=== PATIENT | male | born 1975 | race Caucasian/White ===

== ENCOUNTER 2017-11-15 15:45 | Observation (INO) | payer OTHER ==
[~2017-11-15] VITALS: Ht 175.3 cm; Wt 101.7 kg
[~2017-11-15 15:45] MED LIST: PERCOCET 5-3251 EACH PO
--- NOTE | 2017-11-15 16:09 | ED CARDIAC/CP/PALPITATIONS ---
History of Present Illness General Chief Complaint: Chest Pain Stated Complaint: CP, TIGHTNESS/PRESSURE Source: patient, family Exam Limitations: no limitations Vital Signs & Intake/Output Vital Signs & Intake/Output Vital Signs Date Time Temp Pulse Resp B/P B/P Pulse O2 O2 Flow FiO2 Mean Ox Delivery Rate 11/15 2234 98.8 64 24 132/70 95 11/15 2114 98.1 68 18 125/71 95 Room Air 11/15 2044 90 11/15 1939 97.8 118 17 157/88 98 Room Air 11/15 1825 98.1 58 18 117/70 98 Room Air 11/15 1701 49 11/15 1549 96.8 63 18 156/89 96 Room Air ED Intake and Output 11/16 0000 11/15 1200 Intake Total Output Total Balance Patient 224 lb Weight Weight Reported by Patient Measurement Method Allergies Coded Allergies: pollen extracts (Mild, CONGESTION, HIVES 05/13/16) Reconcile Medications Budesonide (Rhinocort Allergy) 32 MCG/ACTUATION SPRAY.PUMP 1 SPRAY NASB DAILY ALLERGIES (Reported) Cetirizine HCl (Zyrtec) 10 MG TABLET 1 TAB PO DAILY PRN ALLERGIES (Reported) Montelukast Sodium 10 MG TABLET 1 TAB PO DAILY ALLERGIES (Reported) Multiple Vitamin (Multivitamins) 1 EACH TABLET 1 TAB PO DAILY SUPPLEMENT ( Reported) Alcove-3 Fatty Acids (Alcove-3) (Unknown Strength) CAPSULE (Unknown Dose) PO DAILY SUPPLEMENT (Reported) Triage Note: PT FROM HOME C/O "CHEST TIGHTNESS/PRESSURE" SINCE LAST FRIDAY. PT STATES LAST FRIDAY CHEST PRESSURE WAS INTERMITTENT AND THEN CONSTANT SINCE THIS AM. PT DENIES N/V/D, ARM NUMBNESS/TINGLING, JAW OR BACK PAIN. PTS VSS. PT SENT IN FROM WALK IN CLINIC IN [place]. PER MD AT CLINIC PT IS CURRENTLY NOT ON ANY MEDICATION, HX OF SEASONAL ALLERGIES AND GERD. PTS EKG SHOWED BRADYCARDIA, PER MD PT HAS NO THRYOID ISSUES, NO BRUIT, +CLEAR LUNGS. NO DISTRESS NOTED. Triage Nurses Notes Reviewed? yes Onset: Gradual Duration: week(s): Timing: recent history Quality/Severity: moderate, pressure Location: bilateral chest HPI: 41yo male presents to ED sent in by urgent care for chest pain x 1 week. Chest pain is intermittent, currently 5/10, bilateral, pleuritic, worse today. Patient also experiencing pressure to throat area intermittently. Chest pain is associated with dyspnea. Patient reports recent history of ENT infections including otitis media, he sees a specialist periodically. Patient denies abdominal pain, nausea, vomiting, diarrhea, fevers, chills, presyncope, hemoptysis. Patient recently traveled last month of [place] by car. (Mignon Hrenandez) Past History Travel History Traveled to [facility] past 21 day No Medical History Any Pertinent Medical History? 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 No (Mignon Hernandez) Review of Systems Review of Systems Constitutional: Reports: no symptoms. EENTM: Reports: see HPI. Respiratory: Reports: see HPI. Cardiovascular: Reports: see HPI. GI: Reports: no symptoms. Genitourinary: Reports: no symptoms. Musculoskeletal: Reports: no symptoms. Skin: Reports: no symptoms. Neurological/Psychological: Reports: no symptoms. Hematologic/Endocrine: Reports: no symptoms. Immunologic/Allergic: Reports: no symptoms. All Other Systems: Reviewed and Negative (Mignon Hernandez) Physical Exam Physical Exam General Appearance: well developed/nourished, no apparent distress, alert, awake Head: atraumatic, normal appearance Eyes: Bilateral: normal appearance. Ears, Nose, Throat: hearing grossly normal Neck: normal inspection, supple, full range of motion Respiratory: normal breath sounds, chest non-tender, no respiratory distress, lungs clear Cardiovascular: bradycardia Peripheral Pulses: 2+ radial (R), 2+ radial (L) Gastrointestinal: normal bowel sounds, soft, non-tender, no organomegaly Back: normal inspection, normal range of motion Extremities: normal inspection, normal range of motion, no edema, no calf tenderness Neurologic/Psych: awake, alert, oriented x 3 Skin: intact, normal color, warm/dry Core Measures ACS in differential dx? Yes CVA/TIA Diagnosis No Sepsis Present: No Sepsis Focused Exam Completed? No (Mignon Hernandez) Progress Differential Diagnosis: AMI, atrial fibrillation, costochondritis, musculoskeletal pain, myocarditis, pericarditis, pneumonia, pneumothorax, PSVT, pulmonary embolism, PVCs/PACs, V-fib/V-Tach Plan of Care: Orders Procedure Date/time Status Heart Healthy Diet 11/16 B Active EKG 11/16 0716 Active LIPID PANEL 11/16 0230 Complete TROPONIN LEVEL 11/16 0200 Complete EKG 11/16 0200 Active Lab Add-on Test 11/16 UNK Active Regular Diet 11/15 D Complete Teach/Educate 11/16 2147 Active Pain Treatment and Response 11/16 2147 Active Nutritional Intake, Monitor 11/16 2147 Active Isolation 11/16 2147 Active Patient Care Conference 11/16 2147 Active Activity/Ambulation 11/[address] in observation 11/15 2124 Active Pathway - chart 11/15 2120 Active House Staff 11/15 2120 Active Patient Data 11/15 2120 Active Code Status 11/15 2120 Active Patient Data 11/15 1958 Active ED Holding Orders 11/15 195 Active Vital Signs 11/15 195 Active Code Status 11/15 1958 Complete TROPONIN LEVEL 11/15 1940 Complete EKG 11/15 1940 Active THYROID STIMULATING HORMONE 11/15 192 Complete MAGNESIUM 11/15 1927 Complete FREE T4 11/15 1927 Complete Add-on Test (ER Only) 11/15 1841 Active URINE DRUG SCREEN FOR ER ONLY 11/15 1732 Active LYME TITRE 11/15 1640 Active GLYCOSYLATED HGB 11/15 1640 Active TROPONIN LEVEL 11/15 1620 Active D-DIMER 11/15 1620 Complete COMPREHENSIVE METABOLIC PANEL 11/15 1620 Active CBC WITHOUT DIFFERENTIAL 11/15 1620 Complete Intake & Output 11/15 1606 Active EKG 11/15 1546 Active Lab Add-on Test 11/15 UNK Active VTE Mechanical Prophylaxis 11/15 UNK Active Vital Signs 11/15 UNK Complete Telemetry/Undercover Agent 11/15 UNK Active ECHOCARDIOGRAM 11/15 UNK Active Current Medications Sig/Tatianna Start time Last Medication Dose Stop Time Status Admin Montelukast Sodium 10 MG 2200 11/16 2200 AC (Singulair) Aspirin 81 MG DAILY 11/16 1000 AC (Aspirin) Enoxaparin Sodium 40 MG DAILY 11/16 1000 AC (Lovenox) Multivitamins 1 TAB DAILY 11/16 1000 AC Therapeutic (Theragran-M Vitamins Tabs) Atropine Sulfate 1 MG ONE PRN 11/16 0645 AC (Atropine) Budesonide/ 2 PUF BID 11/150 CAN Formoterol Fumarate (SYMBICORT) Acetaminophen 650 MG Q6P PRN 11/15 2129 AC (Tylenol) Diphenhydramine HCl 25 MG AT BEDTIME PRN 11/15 2129 AC (Benadryl) Laboratory Tests 11/16/17 0230: Troponin I < 0.01, Triglycerides 268 H, Cholesterol 211 H, LDL Cholesterol, Calc 119, HDL Cholesterol 39 L, Cholesterol/HDL Ratio 5 H 11/15/17 1927: Magnesium 2.1, Troponin I < 0.01, TSH 1.890, Free T4 0.93 11/15/17 1640: Anion Gap 12, Estimated GFR > 60, BUN/Creatinine Ratio 20.0, Glucose 86, Hemoglobin A1c Pending, Calcium 10.1, Total Bilirubin 0.5, AST 36, ALT 56, Alkaline Phosphatase 37, Troponin I < 0.01, Total Protein 7.2, Albumin 4.7, Globulin 2.5, Albumin/Globulin Ratio 1.9, D-Dimer High Sensitivty < 200, CBC w Diff NO MAN DIFF REQ, RBC 4.93, MCV 86.1, MCH 29.1, MCHC 33.8, RDW 13.4, MPV 7.5 , Gran % 51.5, Lymphocytes % 40.3, Monocytes % 7.1, Eosinophils % 1.0, Basophils % 0.1, Absolute Granulocytes 2.8, Absolute Lymphocytes 2.2, Absolute Monocytes 0.4, Absolute Eosinophils 0.1, Absolute Basophils 0, Lyme Disease Antibody Pending Heart Score=1 Scores 0-3: 0.9-1.7% risk of adverse cardiac event. In the HEART Score study, these patients were discharged (0.99% in the retrospective study, 1.7% in the prospective study) Patient with episodes of bradycardia detected on monitor, as well as 47-48bpm. heart rate is also fluctuating between 50s and 80s regularly. Patient exercises however is not an avid athelete, is concerned about dipping heart rate. Patient still has active chest pain here in the emergency department. Repeat EKG in sinus tachycardia, rate 109, patient's heart rate down and elevated as high as 120 here in the emergency department. The patient was seen and evaluated by Dr. Cruz. Given multiple episodes of bradycardia with alternating tachycardia and active chest pain patient requires telemetry observation for further evaluation and cardiology consult tomorrow. Spoke with Dr. Malone regarding this patient. Dr. Marcano spoke with hospitalist regarding this patient's telemetry observation. Diagnostic Imaging: Viewed by Me: Radiology Read. Discussed w/RAD: Radiology Read. CXR Impression: PATIENT: RAYSA FELIZ PRESENT AGE: 41 PATIENT ACCOUNT NO: [id number] : 75 LOCATION: [facility] ORDERING PHYSICIAN: Mignon AMADO SERVICE DATE: 11/15/17 EXAM TYPE: RAD - XRY-CHEST XRAY, TWO VIEWS EXAMINATION: XR CHEST CLINICAL INFORMATION: Chest pain and shortness of breath for one week. COMPARISON: None TECHNIQUE: 2 views of the chest were obtained. FINDINGS: The lungs are well-inflated and clear. Trachea is midline in position. No evidence of interstitial disease, focal consolidation, mass, pneumothorax or pleural effusion. The cardiomediastinal silhouette and pulmonary maribell have normal size and contour. The visualized bones are normal. The examined upper abdomen is unremarkable. IMPRESSION: No acute cardiopulmonary disease. DICTATED BY: Korey Basurto MD DATE/TIME DICTATED:11/15/171654 ASSISTANT GUEST SERVICES MANAGER:NICHOLE DATE/TIME TRANSCRIBED:11/15/171654 CONFIDENTIAL, DO NOT COPY WITHOUT APPROPRIATE AUTHORIZATION. <Electronically signed in Other Vendor System> SIGNED BY: Korey Basurto MD 11/15/171658 Initial ED EKG: sinus bradycardia @55bpm, nonspecific ST changes Repeat EKG: changed (HR 109, SINUS TACHYCARDIA) (Xena AMADO,Mignon Parra) Departure Departure Disposition: STILL A PATIENT Condition: Stable Clinical Impression Primary Impression: Bradycardia Secondary Impressions: Chest pain Qualifiers: Chest pain type: unspecified Qualified Code: R07.9 - Chest pain, unspecified Referrals: Mary BRUNSON,Kel Dixon (PCP/Family) Departure Forms: Customer Survey General Discharge Information Observation Note Spoke With: Eh [facility]UNSON,[facility] Physician Advisor Notified: LISA CRUZ DO Place Patient In: Non-ED OBS Care Area Rationale for Observation: My rational for observation is as follows [bradycardia in the upper 40s and low 50s with alternating tachycardia, rate in 120s with recurrent chest pain here in the emergency department requiring repeat EKGs, repeat troponins, telemetry monitoring, cardiology consult tomorrow morning, premature discharge is medically unsafe.]. (Xena AMADO,Mignon Parra) Admission Note Documentation of Exam: Documentation of any treatments & extenuating circumstances including Concerns Regarding Discharge (functional status, medication knowledge or non-compliance, living conditions, etc.) that warrant an admission rather than observation: Observation Note Rationale for Observation: My rational for observation is as follows . PA/[employer] Co-Sign Statement Statement: ED Attending supervision documentation- [X] I saw and evaluated the patient. I have also reviewed all the pertinent lab results and diagnostic results. I agree with the findings and the plan of care as documented in the PA's/[employer]'s documentation. [X] I have reviewed the ED Record and agree with the PA's/[employer]'s documentation. [] Additions or exceptions (if any) to the PAs/DIRECTOR [employer]'s note and plan are summarized below: [] (Jeet BRUNSON,Alexandre Hoyos) Critical Care Note Critical Care Note Critical Care Time: non-applicable (Xena AMADO,Mignon Parra)
[2017-11-15 16:49] LABS: ABSOLUTE BASOPHIL COUNT 0 /CUMM (0.0-0.2); ABSOLUTE EOSINOPHIL COUNT 0.1 /CUMM (0.0-0.7); ABSOLUTE GRANULOCYTE CT 2.8 /CUMM (1.4-6.5); ABSOLUTE LYMPH COUNT 2.2 /CUMM (1.2-3.4); ABSOLUTE MONOCYTE COUNT 0.4 /CUMM (0.10-0.60); BASOPHIL % 0.1 % (0.0-2.0); GRANULOCYTE % 51.5 % (42.2-75.2); HEMATOCRIT 42.5 % (42-52); MEAN CORPUSCULAR HGB 29.1 PG (27.0-31.0); MEAN CORPUSCULAR HGB CONC 33.8 G/DL (33.0-37.0); MEAN CORPUSCULAR VOLUME 86.1 FL (80.0-94.0); MEAN PLATELET VOLUME 7.5 FL (7.4-10.4); PLATELET COUNT 275 /CUMM (130-400); RBC DISTRIBUTION WIDTH 13.4 % (11.5-14.5); RED BLOOD CELL CT 4.93 /CUMM (4.70-6.10); WHITE BLOOD CELL COUNT 5.5 /CUMM (4.8-10.8)
--- NOTE | 2017-11-15 16:59 | RADIOLOGY REPORT ---
EXAMINATION: XR CHEST CLINICAL INFORMATION: Chest pain and shortness of breath for one week. COMPARISON: None TECHNIQUE: 2 views of the chest were obtained. FINDINGS: The lungs are well-inflated and clear. Trachea is midline in position. No evidence of interstitial disease, focal consolidation, mass, pneumothorax or pleural effusion. The cardiomediastinal silhouette and pulmonary maribell have normal size and contour. The visualized bones are normal. The examined upper abdomen is unremarkable. IMPRESSION: No acute cardiopulmonary disease.
[2017-11-15] MEDS ORDERED: MONTELUKAST SOD10 M1 PO (17:15)
[2017-11-15] MEDS ORDERED: RHINOCORT ALL8.43 ML NASB (17:16)
[2017-11-15] MEDS ORDERED: ZYRTEC10 M3 PO (17:16)
[2017-11-15] MEDS ORDERED: OMEGA-31000 M1 PO (17:16)
[2017-11-15] MEDS ORDERED: MULTIVITAMINS1 EAC9 PO (17:17)
--- NOTE | 2017-11-15 20:30 | History & Physical ---
Liliana BRUNSON,Yee 11/15/17 2030: General Information and HPI MD Statement: I have seen and personally examined RAYSA FELIZ and documented this H&P. The patient is a 41 year old M who presented with a patient stated chief complaint of [chest pain]. Source of Information: patient Exam Limitations: no limitations History of Present Illness: Mr. Feliz is a 41-year-old gentleman with past medical history of allergies, Lyme disease and GERD presents with chest pain that has required one for the past 1 week. According to the patient, he first felt the chest pressure along with some throat pressure a week ago which lasted for 20 minutes, without any precipitating, aggravating/relieving factors and not associated with palpitations or shortness of breath. The chest pain resolved on its and he has been experiencing it on and off but today the chest pressure was constant and he decided to go to the walk-in clinic. EKG was done at the walk-in clinic which showed bradycardia and some nonspecific ST-T wave changes and was sent to the [place] ER for further evaluation. He denies any cough, sputum production, shortness of breath, wheezing, fever/chills, lightheadedness/dizziness, or loss of consciousness. The patient doesn't complain of any palpitations this mentioned noticing his heart rate going up to 120s on the Fitbit. He also mentions getting a lot of upper and lower respiratory tract infections, recently was treated for otitis media in October. He also started exercising for weeks ago 3 days per week and has been taking some Peruvian multivitamin along with the protein supplement. Patient states that he was diagnosed with Lyme disease 20 years ago and even now goes outside a lot but does not remember any recent tick bites. Allergies/Medications Allergies: Coded Allergies: pollen extracts (Mild, CONGESTION, HIVES 05/13/16) Home Med list Budesonide (Rhinocort Allergy) 32 MCG/ACTUATION SPRAY.PUMP 1 SPRAY NASB DAILY ALLERGIES (Reported) Cetirizine HCl (Zyrtec) 10 MG TABLET 1 TAB PO DAILY PRN ALLERGIES (Reported) Montelukast Sodium 10 MG TABLET 1 TAB PO DAILY ALLERGIES (Reported) Multiple Vitamin (Multivitamins) 1 EACH TABLET 1 TAB PO DAILY SUPPLEMENT ( Reported) Chauvin-3 Fatty Acids (Chauvin-3) (Unknown Strength) CAPSULE (Unknown Dose) PO DAILY SUPPLEMENT (Reported) Past History Travel History Traveled to [place] past 21 day No Medical History Neurological: NONE EENT: allergies Cardiovascular: NONE Respiratory: NONE Gastrointestinal: ACID REFLUX Hepatic: NONE Renal: NONE Musculoskeletal: NONE Psychiatric: NONE Endocrine: NONE Blood Disorders: NONE Cancer(s): NONE 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 Home Who Do You Live With? spouse Smoking Status: Never Smoked ETOH Use: denies use Illicit Drug Use: marijuana Functional Ability ADLs Independent: dressing, eating, toileting, bathing. Ambulation: independent IADLs Independent: shopping, housework, finances, food prep, telephone, transportation , medication admin. Review of Systems Review of Systems Constitutional: Reports: no symptoms. EENTM: Reports: no symptoms. Cardiovascular: Reports: chest pain. Respiratory: Reports: no symptoms. GI: Reports: no symptoms. Genitourinary: Reports: no symptoms. Musculoskeletal: Reports: no symptoms. Skin: Reports: no symptoms. Neurological/Psychological: Reports: no symptoms. Hematologic/Endocrine: Reports: no symptoms. Immunologic/Allergic: Reports: no symptoms. All Other Systems: Reviewed and Negative Exam & Diagnostic Data Last 24 Hrs of Vital Signs/I&O Vital Signs Date Time Temp Pulse Resp B/P B/P Pulse O2 O2 Flow FiO2 Mean Ox Delivery Rate 11/15 2234 98.8 64 24 132/70 95 11/15 2114 98.1 68 18 125/71 95 Room Air 11/15 2044 90 11/15 1939 97.8 118 17 157/88 98 Room Air 11/15 1825 98.1 58 18 117/70 98 Room Air 11/15 1701 49 11/15 1549 96.8 63 18 156/89 96 Room Air Intake & Output 11/16 0800 11/16 0000 11/15 1600 Intake Total Output Total Balance Patient 224 lb 215 lb Weight Weight Reported by Patient Measurement Method Physical Exam General Appearance Alert, Oriented X3, Cooperative, No Acute Distress Skin No Rashes, No Breakdown HEENT Atraumatic, PERRLA, EOMI, Mucous Membr. moist/pink Neck Supple, No JVD Cardiovascular Regular Rate, Normal S1, Normal S2, No Murmurs Lungs Clear to Auscultation, Normal Air Movement Abdomen Normal Bowel Sounds, Soft, No Tenderness Extremities No Clubbing, No Cyanosis, No Edema, Normal Pulses Last 24 Hrs of Labs/Salvador: Laboratory Tests 11/15/17 1927: Magnesium 2.1, Troponin I < 0.01, TSH 1.890, Free T4 0.93 11/15/17 1640: Anion Gap 12, Estimated GFR > 60, BUN/Creatinine Ratio 20.0, Glucose 86, Calcium 10.1, Total Bilirubin 0.5, AST 36, ALT 56, Alkaline Phosphatase 37, Troponin I < 0.01, Total Protein 7.2, Albumin 4.7, Globulin 2.5, Albumin/Globulin Ratio 1.9, D-Dimer High Sensitivty < 200, CBC w Diff NO MAN DIFF REQ, RBC 4.93, MCV 86.1, MCH 29.1, MCHC 33.8, RDW 13.4, MPV 7.5, Gran % 51.5, Lymphocytes % 40.3, Monocytes % 7.1, Eosinophils % 1.0, Basophils % 0.1, Absolute Granulocytes 2.8, Absolute Lymphocytes 2.2, Absolute Monocytes 0.4, Absolute Eosinophils 0.1, Absolute Basophils 0, Lyme Disease Antibody Pending Diagnostic Data EKG Results Normal sinus rhythm Heart rate 55 QTC 442 CXR Results IMPRESSION: No acute cardiopulmonary disease. Assessment/Plan Assessment: Mr. Feliz is a 41-year-old gentleman with past medical history of allergies, Lyme disease and GERD presents with chest pain that has required one for the past 1 week. Problem list 1. Chest pain 2. Tachycardia alternating with bradycardia - heart rate on the cardiac sonographer range from 40-110, patient did mention having episodes of bradycardia every time he dozed off. 3. Non-Specific EKG changes 4. History of GERD and allergies - We'll observe the patient on telemetry floor for 24-48 hours. - Start the patient on aspirin 41 mg daily - Nitroglycerin as needed for chest pain - Telemetry monitoring - Troponin and EKG 3 to rule out ACS - Cardiology consult in a.m. - Echocardiogram - TSH and free T4 levels - We'll recheck potassium, mag and phosphorus levels in a.m. - Lyme titre pending - ?? Holter monitor as an outpatient. - Continue home medications. As Ranked By This Provider Problem List: 1. Chest pain Qualifiers Chest pain type: unspecified Qualified Code: R07.9 - Chest pain, unspecified 2. Bradycardia Core Measures/Misc (05/18) Acute Coronary Syndrome ACS Diagnosis: No Congestive Heart Failure Congestive Heart Failure Diagnosis No Cerebrovascular Accident CVA/TIA Diagnosis: No VTE (View Protocol) VTE Risk Factors Age>40 No Mechanical VTE Prophylaxis d/t N/A MechProphylax Ordered No VTE Pharm Prophylaxis d/t NA PharmProphylax ordered Sepsis (View protocol) Sepsis Present: No Sanket Mcneill 11/15/17 2255: Resident Review Statement Resident Statement: examined this patient, discussed with business development intern, agreed with business development intern, discussed with family, reviewed EMR data (avail), discussed with nursing , discussed with case mgmt, reviewed images, amended to note Other Findings: This is a 41-year-old male with past medical history significant for allergies, GERD, Ear infection, Lyme disease 25 years back presented to the emergency department for evaluation of chest pain ongoing for 1 week. Patient reports that he has been having chest pains for 1 week, reports chest tightness middle of his chest, 5 out of 10, throat pressure, on and off, comes randomly, no aggravating or relieving factors. He didn't try any medications for the chest pain. Denied any nausea, vomiting, diaphoresis, numbness or tingling, radiation of chest pain, short of breath, palpitations or syncope. Patient reports that he has this chest pain for 1 week, went to urgent care clinic this afternoon for further evaluation, EKG was done at the urgent care which showed sinus bradycardia, first-degree AV block, sinus arrhythmia with some T-wave flattening seen in the inferior leads, ST T-wave changes in V5. He was sent in from urgent care for evaluation of chest pain and EKG changes. Patient reports that he started doing exercise for last 1 month, goes 3 days per week, doing some strengthening exercises for 30 minutes. Of note he reports that he takes LURONG which is a muscle supplement from [id number]. He has no prior history of chest pain, no family history of cardiac disease. Review of systems negative for fever, chills, productive cough, short of breath, palpitations, nausea, vomiting, abdominal pain, change in bladder or bowel habits. He denied smoking, alcohol abuse, illicit drug abuse. No pertinent family history. Vitals afebrile, heart rate 63, respiratory rate 18, blood pressure 156/89, saturating at 96 on room air. On exam General Appearance: well developed/nourished, no apparent distress, alert, awake Head: atraumatic, normal appearance Neck: normal inspection, supple, full range of motion Respiratory: normal breath sounds, chest non-tender, no respiratory distress, lungs clear Cardiovascular: bradycardia/TACHYCARDIA Gastrointestinal: normal bowel sounds, soft, non-tender, no organomegaly Extremities: normal inspection, normal range of motion, no edema, no calf tenderness Pertinent labs CBC, BEP within normal limits LFT, troponin negative Chest x-ray no acute cardiopulmonary findings. EKG from urgent care showed sinus rhythm, sinus bradycardia, 55, inferior lead T -wave flattening, ST T changes in V5. EKG in the ER showed sinus RHYTHM, rate 55. Next EKG showed sinus tachycardia, sinus rhythm, 109. ------- 1. Atypical chest pain This is a 41-year-old male with no prior cardiac history, family history presented to the emergency room for evaluation of chest pain ongoing for 1 week. He reports chest tightness, 5 out of 10, nonradiating chest pain on and off for 1 week. No aggravating or relieving factors. Not associated with any other symptoms. He is hemodynamically stable. However his EKG showed some T-wave flattening in the inferior leads and ST changes in V5. * Possible differentials - atypical chest pain versus acute coronary syndrome/ unstable angina. Other possibility musculoskeletal chest pain, GERD. * We'll place her under observation in the telemetry floor * Continuous telemetry monitoring * Monitor vitals every shift * Maintain oxygen saturation above 90 * Serial troponin and EKG * Received aspirin 325 mg in the emergency room * Continue aspirin 81 daily * Nitroglycerin tablet as needed for chest pain * Cardiology consult * Follow-up thyroid function tests 2. Tachycardia-Bradycardia EKG from urgent care showed sinus rhythm, sinus bradycardia, 55, inferior lead T -wave flattening, ST T changes in V5. EKG in the ER showed sinus RHYTHM, sinus harry rate 55. Next EKG showed sinus tachycardia, sinus rhythm, 109. He was found to have heart rate varying between 40-110 on the music promoter. * We'll place her under observation in the telemetry floor * Continuous telemetry monitoring * Follow cardiology recommendations * Follow-up echocardiogram 3. Allergies Continue home medication montelukast and Benadryl 25 mg at bedtime LURONG- DEER ANTRAL VELVET Cayuta antler velvet is a natural source of nutrients of which IGF-1, Glucosamine, Chondroitin and Hyaluronic acid. the supplement boosts energy levels and could seriously affect heart. Patient is full code DVT prophylaxis subcutaneous Lovenox Regular diet Eh BRUNSON, [facility] 11/16/17 0253: Attending MD Review Statement Attending Statement Attending MD Statement: examined this patient, discuss w/resident/PA/DRAPERY CUTTER, agreed w/resident/PA/DRAPERY CUTTER, discussed with family, reviewed images, amended to note Attending Assessment/Plan: 41 yo M with h/o seasonal allergies, Lyme disease, is here for evaluation of substernal chest pressure and pressure sensation in the throat, associated with difficulty taking a deep breath. This is ongoing for the past 1 week, first noticed when he was driving to the [employer] last weekend. Subsequently he has noticed it intermittently at rest or on exertion. It usually lasts about 20 minutes and resolves on its own. No associated symptoms. No aggravating or relieving factors. Today, the chest pressure did not resolve, so he went to an Urgent care from where he was directed to the ER due to an abnormal EKG. No family history of premature heart disease. Patient does not smoke, drink alcohol or do drugs. Patient is currently not in any distress and has no chest pressure. Patient works at [employer] (since past 4 months), also restarted working out at the gym for past 4 weeks. He has been taking a supplement "Cayuta Velvet Lurong Living" for the past 1 week, which is to boost strength, athletic performance and endurance. While in the ER, patient was noted to be bradycardic to high 40's and then tachycardic to 110's asymptomatic. Patient's reports that he was dozing off when his HR dropped to 40's. Patient also showed his fitness bruno which has recorded his HR with a very variable range from 60's to 120's. Vitals stable with HR now is 60's. Exam unremarkable. Labs are unremarkable, troponin negative. Utox pending. CXR: no acute process. EKG (at Urgent care): sinus harry at 55, 1st degree heart block, isolated TWI in lead III, peaked T-wave V2-4, ?LVH. EKG (ER): sinus tachycardia @ 109, TWI in inferior leads II, III, aVF, Qtc 442. Assessment and plan: 1. Chest pain, rule out ACS 2. EKG with nonspecific T-wave changes 3. Asymptomatic bradycardia interspersed with tachycardia 4. History of Lyme's disease - 23 hour observation on Telemetry - Serial EKG and troponin - Check TSH, free T4, lipid panel, HbA1c - Aspirin 325 mg given in ER - SL nitro as needed - Obtain echo - Cardio consult - Lyme titers pending - Monitor for arrhythmias, atropine at bedside - Discontinue use for Cayuta-Velvet supplement for now unsure if this medication is related to his symptoms. - Follow Urine drug screen results DVT ppx Lovenox. Full code. Observation Initial Note - I have personally examined RAYSA FELIZ on 11/16/17 at 0254. The disposition of RAYSA FELIZ is uncertain at this time and before a determination can be made, he requires a period of observation for the following reasons [Chest pressure, bradycardia]
[2017-11-15 22:34] VITALS: BP 132/70
--- NOTE | 2017-11-16 09:32 | Cons- Cardiology ---
General Information and HPI Consulting Request Date of Consult: 11/16/17 Requested By: Eh BRUNSON,Reg Reason for Consult: Chest pain with variable heart rate Source of Information: patient Exam Limitations: no limitations History of Present Illness: The patient is a 41-year-old male with a past medical history of allergies, Lyme disease, and reflux disease. The patient presented to the emergency room with somewhat atypical symptoms of upper sternal chest sensation which he describes as a mild discomfort or pressure which has been present over the last week. The symptoms are not related to exertion. The patient goes to the gym without any difficulties. He has noticed some respiratory component to the symptoms. Otherwise, he has not noted any specific pattern, positional component, etc. In the emergency room, the patient was also noted to have fluctuating heart rate which appeared to be sinus rhythm, ranging from the high 40s to the low 100s. The patient was admitted to the hospital as an observation for further evaluation and monitoring. Since admission, he has been feeling fairly well. On the clinical data specialist, he has had no evidence of any arrhythmias other than sinus arrhythmia. Allergies/Medications Allergies: Coded Allergies: pollen extracts (Mild, CONGESTION, HIVES 05/13/16) Home Med List: Budesonide (Rhinocort Allergy) 32 MCG/ACTUATION SPRAY.PUMP 1 SPRAY NASB DAILY ALLERGIES (Reported) Cetirizine HCl (Zyrtec) 10 MG TABLET 1 TAB PO DAILY PRN ALLERGIES (Reported) Montelukast Sodium 10 MG TABLET 1 TAB PO DAILY ALLERGIES (Reported) Multiple Vitamin (Multivitamins) 1 EACH TABLET 1 TAB PO DAILY SUPPLEMENT ( Reported) Guthrie-3 Fatty Acids (Guthrie-3) (Unknown Strength) CAPSULE (Unknown Dose) PO DAILY SUPPLEMENT (Reported) Current Medications: Current Medications Sig/Tatianna Start time Last Medication Dose Route Stop Time Status Admin Acetaminophen 650 MG Q6P PRN 11/15 2129 AC PO Aspirin 81 MG DAILY 11/16 1000 AC 11/16 PO 0921 Aspirin 0 .STK-MED ONE 11/15 2136 DC PO Aspirin 325 MG ONCE ONE 11/15 2129 DC 11/15 PO 11/15 Atropine Sulfate 1 MG ONE PRN 11/16 0645 AC IV Atropine Sulfate 1 MG ONE ONE 11/16 0345 DC IV 11/16 0346 Budesonide/ 2 PUF BID 11/150 CAN Formoterol Fumarate INH Diphenhydramine HCl 25 MG AT BEDTIME PRN 11/150 AC PO Enoxaparin Sodium 40 MG DAILY 11/16 1000 AC 11/16 SC 0921 Montelukast Sodium 10 MG 0 11/16 2199 AC PO Multivitamins 1 TAB DAILY 11/16 1000 AC 11/16 Therapeutic PO 0921 Past History Travel History Traveled to [place] past 21 day No Medical History Blood Transfusion Hx: No Neurological: NONE EENT: allergies Cardiovascular: NONE Respiratory: NONE Gastrointestinal: ACID REFLUX Hepatic: NONE Renal: NONE Musculoskeletal: NONE Psychiatric: NONE Endocrine: NONE Blood Disorders: NONE Cancer(s): 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 Home Who Do You Live With? spouse Smoking Status: Never Smoked ETOH Use: denies use Illicit Drug Use: marijuana Functional Ability ADLs Independent: dressing, eating, toileting, bathing. Ambulation: independent IADLs Independent: shopping, housework, finances, food prep, telephone, transportation , medication admin. Exam & Diagnostic Data Vital Signs and I&O Vital Signs Date Time Temp Pulse Resp B/P B/P Pulse O2 O2 Flow FiO2 Mean Ox Delivery Rate 11/15 2233 98.8 64 24 132/70 95 11/15 2114 98.1 68 18 125/71 95 Room Air 11/15 2044 90 11/15 1939 97.8 118 17 157/88 98 Room Air 11/15 1825 98.1 58 18 117/70 98 Room Air 11/15 1701 49 11/15 1549 96.8 63 18 156/89 96 Room Air Intake & Output 11/16 1600 11/16 0800 11/16 0000 11/15 1600 11/15 0800 11/15 0000 Intake Total Output Total Balance Patient 224 lb 215 lb Weight Weight Reported by Patient Measurement Method Physical Exam: General Appearance Alert, Oriented X3, Cooperative, No Acute Distress Skin normal HEENT Atraumatic, PERRLA, EOMI, Mucous Membr. moist/pink Neck Supple, No JVD, carotid shows normal bilaterally with no bruits Cardiovascular Regular Rate, Normal S1, Normal S2, No Murmurs Lungs Clear to Auscultation and percussion bilaterally. No chest wall tenderness Abdomen Normal Bowel Sounds, Soft, No Tenderness Extremities No Clubbing, No Cyanosis, No Edema, Normal Pulses Labs/Salvador Results: Laboratory Tests 11/16 11/15 11/15 0230 1927 1640 Chemistry Sodium (137 - 145 mmol/L) 141 Potassium (3.5 - 5.1 mmol/L) 4.1 Chloride (98 - 107 mmol/L) 102 Carbon Dioxide (22 - 30 mmol/L) 28 Anion Gap (5 - 16) 12 BUN (9 - 20 mg/dL) 20 Creatinine (0.7 - 1.2 mg/dL) 1.0 Estimated GFR (>60 ml/min) > 60 BUN/Creatinine Ratio (7 - 25 %) 20.0 Glucose (65 - 99 mg/dL) 86 Hemoglobin A1c (4.2 - 5.8 %) Pending Calcium (8.4 - 10.2 mg/dL) 10.1 Magnesium (1.6 - 2.3 mg/dL) 2.1 Total Bilirubin (0.2 - 1.3 mg/dL) 0.5 AST (17 - 59 U/L) 36 ALT (21 - 72 U/L) 56 Alkaline Phosphatase (< 127 U/L) 37 Troponin I (<0.11 ng/ml) < 0.01 < 0.01 < 0.01 Total Protein (6.3 - 8.2 g/dL) 7.2 Albumin (3.5 - 5.0 g/dL) 4.7 Globulin (1.9 - 4.2 gm/dL) 2.5 Albumin/Globulin Ratio (1.1 - 2.2 %) 1.9 Triglycerides (<150 mg/dL) 268 H Cholesterol (< 200 MG/DL) 211 H LDL Cholesterol, Calc (65 - 129 mg/dL) 119 HDL Cholesterol (40 - 60 mg/dL) 39 L Cholesterol/HDL Ratio (0.00 - 4.88 %) 5 H TSH (0.270 - 4.200 uIU/mL) 1.890 Free T4 (0.64 - 1.79 ng/dL) 0.93 Coagulation D-Dimer High Sensitivty (0 - 243 ng/ml) < 200 Hematology CBC w Diff NO MAN DIFF REQ WBC (4.8 - 10.8 /CUMM) 5.5 RBC (4.70 - 6.10 /CUMM) 4.93 Hgb (14.0 - 18.0 G/DL) 14.4 Hct (42 - 52 %) 42.5 MCV (80.0 - 94.0 FL) 86.1 MCH (27.0 - 31.0 PG) 29.1 MCHC (33.0 - 37.0 G/DL) 33.8 RDW (11.5 - 14.5 %) 13.4 Plt Count (130 - 400 /CUMM) 275 MPV (7.4 - 10.4 FL) 7.5 Gran % (42.2 - 75.2 %) 51.5 Lymphocytes % (20.5 - 51.1 %) 40.3 Monocytes % (1.7 - 9.3 %) 7.1 Eosinophils % (0 - 5 %) 1.0 Basophils % (0.0 - 2.0 %) 0.1 Absolute Granulocytes (1.4 - 6.5 /CUMM) 2.8 Absolute Lymphocytes (1.2 - 3.4 /CUMM) 2.2 Absolute Monocytes (0.10 - 0.60 /CUMM) 0.4 Absolute Eosinophils (0.0 - 0.7 /CUMM) 0.1 Absolute Basophils (0.0 - 0.2 /CUMM) 0 Serology Lyme Disease Antibody Pending Diagnostic Data CXR Results FINDINGS: The lungs are well-inflated and clear. Trachea is midline in position. No evidence of interstitial disease, focal consolidation, mass, pneumothorax or pleural effusion. The cardiomediastinal silhouette and pulmonary maribell have normal size and contour. The visualized bones are normal. The examined upper abdomen is unremarkable. IMPRESSION: No acute cardiopulmonary disease. Assessment/Plan Assessment/Plan Assessment: 1. Atypical chest pain syndrome 2. Fluctuating heart rate with alternating mild bradycardia and mild tachycardia- on the monitor, the patient only has evidence of sinus arrhythmia with fluctuating heart rate. There is no evidence of any other arrhythmia. 3. Borderline ECG 4. History of GERD and allergies Recommendations: -At the moment, the patient's symptoms are somewhat atypical. There is no evidence of any acute cardiac issues. ECGs and troponins have been unrevealing. The clinical data specialist only show sinus arrhythmia. It is possible that the patient may have very mild pericarditis following his recent viral infection/ influenza. The echo cardiac gram shows normal left ventricular function with no evidence of any significant abnormalities. -I discussed the situation in detail with the patient. For now, I believe it is safe to discharge the patient home. -I would discharge the patient home on low-dose nonsteroidal anti-inflammatory such as ibuprofen 200 mg 3 times a day -I will arrange to have an event monitor sent to the patient's house for further monitoring of his heart rate. -I will follow-up the patient in the office in one to 2 weeks. Consult Acknowledgment - Thank you for your consult request.
--- NOTE | 2017-11-16 13:18 | Patient Discharge Instructions ---
Discharge Instructions General Discharge Information You were seen/treated for: 1. Chest pain, rule out ACS 2. EKG with nonspecific T-wave changes 3. Asymptomatic bradycardia interspersed with tachycardia 4. History of Lyme's disease Special Instructions: 1please follow-up with your PCP in 1 week discharge 2please follow-up with hat binder in 1 week of discharge Diet Continue normal diet: Yes Acute Coronary Syndrome Inclusion Criteria At DC or during hospital stay patient has or had the following: ACS DIAGNOSIS No Discharge Core Measures Meds if any: Prescribed or Continued at Discharge Meds if any: NOT Prescribed or Continued at Discharge Congestive Heart Failure Inclusion Criteria At DC or during hospital stay patient has or had the following: CHF DIAGNOSIS No Discharge Core Measures Meds if any: Prescribed or Continued at Discharge Meds if any: NOT Prescribed or Continued at Discharge Cerebrovascular accident Inclusion Criteria At DC or during hospital stay patient has or had the following: CVA/TIA Diagnosis No Discharge Core Measures Meds if any: Prescribed or Continued at Discharge Meds if any: NOT Prescribed or Continued at Discharge Venous thromboembolism Inclusion Criteria VTE Diagnosis No VTE Type NONE VTE Confirmed by (Test) NONE Discharge Core Measures - Per Current guidelines, there needs to be overlap - treatment for the first 5 days of Warfarin therapy. - If discharged on Warfarin prior to 5 days of - overlap therapy, the patient will need to be - assessed for post discharge needs including - *Post discharge parental anticoagulation - *Warfarin and/or parental anticoagulation education - *Follow up date to check INR post discharge At least 5 days overlap therapy as Inpatient No Meds if any: Prescribed or Continued at Discharge Note: Overlap Therapy is Warfarin and Anticoagulant Meds if any: NOT Prescribed or Continued at Discharge
--- NOTE | 2017-11-16 13:33 | PN- Att Addend ---
Attending Addendum Attending Brief Note Patient seen and examined. Resting comfortably and not in any acute distress. No events on telemetry monitoring overnight. He has been in sinus rhythm. No significant bradycardia noted overnight. This morning he denies chest or shortness of breath. Denies palpitations. Denies cough. Patient denies any difficulty or pain when swallowing. Denies any cough. Although he reports falling asleep easily when reading books he denies any other episodes of daytime somnolence. He reports having refreshed sleep. Denies somnolence at work or when driving long distances. Vital Signs Date Time Temp Pulse Resp B/P B/P Pulse O2 O2 Flow FiO2 Mean Ox Delivery Rate 11/15 2234 98.8 64 24 132/70 95 11/15 2114 98.1 68 18 125/71 95 Room Air 11/15 2044 90 11/15 1939 97.8 118 17 157/88 98 Room Air 11/15 1825 98.1 58 18 117/70 98 Room Air 11/15 1701 49 11/15 1549 96.8 63 18 156/89 96 Room Air Gen. appearance: Well-developed, not in any distress Heart: S1-S2 regular with no audible normal. Lungs: Clear to auscultation bilaterally. Abdomen: Soft, nontender with normal bowel sounds. Extremities: No pedal edema. Skin: Intact with no rashes. Laboratory Tests 11/16/17 0930: Urine Opiates Screen < 100, Methadone Screen < 40, Barbiturate Screen < 60, Ur Phencyclidine Scrn < 6.00, Amphetamines Screen < 100, U Benzodiazepines Scrn < 85, Urine Cocaine Screen < 50, Urine Cannabis Screen > 80.00 H 11/16/17 0230: Troponin I < 0.01, Triglycerides 268 H, Cholesterol 211 H, LDL Cholesterol, Calc 119, HDL Cholesterol 39 L, Cholesterol/HDL Ratio 5 H 11/15/17 1927: Magnesium 2.1, Troponin I < 0.01, TSH 1.890, Free T4 0.93 11/15/17 1640: Anion Gap 12, Estimated GFR > 60, BUN/Creatinine Ratio 20.0, Glucose 86, Hemoglobin A1c Pending, Calcium 10.1, Total Bilirubin 0.5, AST 36, ALT 56, Alkaline Phosphatase 37, Troponin I < 0.01, Total Protein 7.2, Albumin 4.7, Globulin 2.5, Albumin/Globulin Ratio 1.9, D-Dimer High Sensitivty < 200, CBC w Diff NO MAN DIFF REQ, RBC 4.93, MCV 86.1, MCH 29.1, MCHC 33.8, RDW 13.4, MPV 7.5 , Gran % 51.5, Lymphocytes % 40.3, Monocytes % 7.1, Eosinophils % 1.0, Basophils % 0.1, Absolute Granulocytes 2.8, Absolute Lymphocytes 2.2, Absolute Monocytes 0.4, Absolute Eosinophils 0.1, Absolute Basophils 0, Lyme Disease Antibody 0.31 Problems: 1. Chest pain; atypical. Resolved. 2. Sinus arrhythmia. No significant bradycardia noted on telemetry monitoring overnight. Plan: -Patient has ruled out for ACS. He has no ischemic changes on EKG. Cardiac enzymes are negative. He currently denies any further complaints of chest pain. Unlikely that chest pain has been going on for over a week if due to coronary disease would show no ischemic changes or abnormal troponins during evaluation. It may be musculoskeletal in etiology however the pain is not reproducible. Will follow up echo to rule out pericarditis. -Follow recommendations of the cardiology service. If no further inpatient workup is recommended, patient may be discharged home to follow-up with his primary care provider.
[2017-11-16 14:36] VITALS: BP 132/90
--- NOTE | 2017-11-16 19:58 | ECHOCARDIOGRAM REPORT ---
RAYSA FELIZ Age: 41 : 1975 Gender: M Exam Date: 11/16/2017 10:04 Exam Location: [address] Ht (in): 69 Wt (lb): 215 BSA: 2.21 BP: 132 / 70 Ordering Physician: Riaz Mcneill MD Referring Physician: Zehng Malone MD Technologist: Lucita Ferrer [facility] Room Number: 181 Indications: CHEST PAIN Rhythm: Sinus Technical Quality: Good FINDINGS Left Ventricle Normal size left ventricle. No obvious regional wall motion abnormalities. Normal left ventricular ejection fraction estimated at 60-65%. Right Ventricle Normal right ventricular size and function. Right Atrium Normal right atrial size. Left Atrium Mild left atrial dilatation. Mitral Valve Structurally normal mitral valve. Aortic Valve Trileaflet aortic valve. Focal thickening of the aortic valve cusps. No aortic stenosis. No aortic regurgitation. Tricuspid Valve Tricuspid valve not well visualized, grossly normal. Trace tricuspid regurgitation. Pulmonic Valve Structurally normal pulmonic valve. Pericardium No pericardial effusion. Great Vessels Normal size aortic root and proximal ascending aorta. CONCLUSIONS 1. Minimal aortic sclerosis is present with no valvular stenosis or insufficiency. 2. The mitral valve is anatomically normal. Minimal mitral insufficiency is present 3. No pericardial fluid was detected on this study. 4. The left ventricular chamber size is normal with mild concentric hypertrophy and a normal ejection fraction with no resting wall motion abnormalities. 5. A muscular band is present at the left ventricular apex. 6. Minimal tricuspid insufficiency is present with no evidence of pulmonary hypertension. Zheng Malone M.D. (Electronically Signed) Final Date: 16 November 2017 19:58 MEASUREMENTS (Male / Female) Normal Values 2D ECHO LV Diastolic Diameter PLAX 5.1 cm 4.2 - 5.9 / 3.9 - 5.3 cm LV Systolic Diameter PLAX 3.3 cm 2.1 - 4.0 cm LV Fractional Shortening PLAX 35.3 % 25 - 46 % LV Ejection Fraction 2D Teich 64.4 % IVS Diastolic Thickness 1.3 cm LVPW Diastolic Thickness 1.3 cm LV Relative Wall Thickness 0.5 RV Internal Dim ED PLAX 3.6 cm 1.9 - 3.8 cm LVOT Diameter 2.0 cm Aortic Root Diameter 3.3 cm LA Systolic Diameter LX 3.9 cm 3.0 - 4.0 / 2.7 - 3.8 cm LA Volume 49.0 cm 18 - 58 / 22 - 52 cm Ascending Aorta Diameter 3.3 cm DOPPLER AV Peak Velocity 125.0 cm/s AV Peak Gradient 6.3 mmHg AV Mean Velocity 89.9 cm/s AV Mean Gradient 4.0 mmHg AV Velocity Time Integral 27.6 cm LVOT Peak Velocity 99.3 cm/s LVOT Peak Gradient 3.9 mmHg LVOT Mean Velocity 66.4 cm/s LVOT Mean Gradient 2.0 mmHg LVOT Velocity Time Integral 21.7 cm LVOT Stroke Volume 68.2 cm AV Area Cont Eq vti 2.5 cm AV Area Cont Eq pk 2.5 cm MV Peak Velocity 138.0 cm/s MV Peak Gradient 7.6 mmHg MV Mean Velocity 54.3 cm/s MV Mean Gradient 2.0 mmHg Mitral E Point Velocity 113.0 cm/s Mitral A Point Velocity 57.3 cm/s Mitral E to A Ratio 2.0 MV PHT Velocity 146.0 cm/s MV Deceleration Mclean 686.0 cm/s MV Pressure Half Time 63.8 ms MV Area PHT 3.4 cm MV Deceleration Time 201.0 ms TR Peak Velocity 175.0 cm/s TR Peak Gradient 12.3 mmHg Right Atrial Pressure 5.0 mmHg Pulmonary Artery Systolic Pressu 17.3 mmHg Right Ventricular Systolic Press 17.3 mmHg PV Peak Velocity 110.0 cm/s PV Peak Gradient 4.8 mmHg PV Mean Velocity 79.9 cm/s PV Mean Gradient 3.0 mmHg PV Velocity Time Integral 27.9 cm LV E' Lateral Velocity 13.7 cm/s Mitral E to LV E' Lateral Ratio 8.2 LV E' Septal Velocity 9.8 cm/s Mitral E to LV E' Septal Ratio 11.6
== END 2017-11-16 17:55 ==
LOC: ERH 15:45 → 1NO 19:58 → ERHI 19:58 → ENRESERV 21:06 → ENTRNSPT 21:21 → EDTRNSPTSTS 21:33 → 1NO 21:35 → CMPTRNSPT 21:49 → 1NO 11-16 17:55
PROVIDERS: Hospitalist; Physician Assistant
DX: R07.89 Other chest pain (principal); K21.9 Gastro-esophageal reflux disease without esophagitis; F12.90 Cannabis use, unspecified, uncomplicated; R00.0 Tachycardia, unspecified; R00.1 Bradycardia, unspecified; Z79.82 Long term (current) use of aspirin
CPT/HCPCS: 6020; 86618; 36592; 71046; 80307; 93005; 93010; 93306; 96372; G0378; J0461; J1650; J3490